=== PATIENT | male | born 2000 ===

== ENCOUNTER 2024-05-30 19:55 | Emergency (ER) | payer BC, SELFPAY ==
--- OUTSIDE RECORDS SUMMARY | 2024-05-30 19:58 | XMS_ITS | Clinical Summary ---
Author Organization [facility] Address [address] [place] [id number] Care Team Providers Care Electrical Automation Engineer Name Role Phone Jessica Saenz MD Primary Care Provi alberto Jessica Saenz MD Unavailable [phone] Allergies Active Allergy Reactions Criticality Noted Date Comments Amoxicillin-Pot Clavulanate Hives,Rash High 11/11/19 12 Medications multivitamin (CHEWABLE MULTI VITAMIN) chew Take 1 tablet by mouth once daily. 0 6 Active ascorbic acid (vitamin C) 100 mg tablet Take 100 mg by mouth. Active cyanocobalamin (vitamin B-12) (VITAMIN B-12 ORAL) Take by mouth. Active Amphetamine-Dextro amphetamine (ADDERALL) 15 mg tabletIndications: Attention deficit hyperactivity disorder (ADHD), unspecified ADHD type Take 1 tablet by mouth 2 times daily 60 Tablet 12/17/2022 11:45 AM CDT 3 05/28/19 25 Discontin ued(*Angelica ent states no longer taking) ondansetron (ZOFRAN ODT) 4 mg disintegrating tabletIndications: Nausea and vomiting, unspecified vomiting type Place 2 Tablets (8 mg) on the tongue every 8 hours if needed for Nausea/Vomi ting. 12 Tablet 3 05/28/19 25 Discontin ued(*Angelica ent states no longer taking) Active Problems Problem Noted Date Diagnosed Date Right hip impingement syndrome 05/27/2024 Acute right-sided low back pain with right-sided sciatica 05/27/2024 Unspecified sinusitis (chronic) 01/12/2012 Nocturnal enuresis 12/09/2010 Encounters Date Type Department Care Team Description 05/27/2024 5:10 PM CDT Ancillary Procedure [facility] [address] [facility] [address] [place] [address] Arrived 05/27/2024 4:40 PM CDT Office Visit [facility] [address] [facility] [address] [place] [address] Ayla Nam PA Hip Pain/problem (R) 05/27/2024 Travel from Last 3 Months Immunizations Immunization Administration Dates Next Due AMB Influenza, IIV4 PF (=>6 mos Flulaval,Fluzone Fluarix)(Flu Clinic Only) 12/07/2018 COVID-19 vaccine (Moderna 100mcg/0.5mL) PF, MDV 09/05/2020,08/06/2020 DTaP 10/21/2006, 3,03/21/2002,01/13,2001 HIB PRP-OMP (PedvaxHIB) 09/12/2002 HIB PRP-T (ActHIB,Hiberix) 01/06/2003 HIB-HepB (Comvax) 06/16/2002,01/13/2002,11/04/19 02 HPV 9 (Gardasil 9) 01/20/2020,10/13/2016 Hepatitis A (Adult) 10/13/2016 Hepatitis A (Peds) 01/20/2020 Inactivated Polio Vaccine 10/13/2016,,01/13/2002,11/03 Influenza, IIV3 (Age >=3 years) 02/12/20 12,12/09/2010,12/06/2007,01/13 Influenza, IIV4 01/20/2020,03/10/2016 MENINGOCOCCAL VACCINE 2 VIAL 2MO-55YO (MENVEO) 10/29/2018,04/28/2013 MMR 10/21/2006,09/12/2002 Pneumococcal conj 7-Valent (Prevnar 7) 1 03/08/2002,03/21/2002,01/13/2002,11/03 Tdap 04/28/2013 Varicella Vaccine 12/09/2010,09/12/2002 Family History Medical History Relation Name Comments Diabetes Brother type one Hyperlipidemia Father Hypertension Father Other Mother celiac disease Other Sister celiac disease dx age 8 Anesthesia Problem No Family History Blood Disease No Family History Relation Name Status Comments Brother Father Mother Sister Social History Tobacco Use Types Packs/Day Years Used Date Smoking Tobacco: Never Passive Smoke Exposure: Never Smokeless Tobacco: Never Tobacco Cessation:Counseling Given: Not Answered Comments:non smoking hoome Alcohol Use Standard Drinks/Week Comments Yes 2 (1 standard drink = 0.6 oz pur e alcohol) occ PHQ-2 Answer Date Recorded PHQ-2 TOTAL SCORE 0 07/30/2022 Social Connections Answer Date Recorded Do you often feel lonely or isolated from those around you? 0 05/27/2024 Financial Resource Strain Answer Date R ecorded Difficulty of Paying Living Expenses 3 05/27/2024 Difficulty of Paying Living Expenses Not on file 05/27/2024 Food Insecurity Answer Date Recorded Do you worry your food will run out before you are able to buy more? 1 05/27/2024 Transportation Needs Answer Date Record ed Does lack of transportation keep you from medica l appointments? 1 05/27/2024 Does lack of transportation keep you from work, meetings or getting things that you need? 1 05/27/2024 Housing Stability Answer Date Recorded What is your housing situation today? 1 05/27/2024 Utilities Answer Date Recorded Do you have trouble paying f or utilities (for example, heat, electricity, water, phone)? 1 05/27/2024 Sex and Gender Information Value Date Recorded Sex Assigned at Not on file Legal Sex Male 6:27 AM DEBONING TEAM LEADER Gender Identity Not on file Sexual Orientation Not on file Obstetrics History Last Filed Vital Signs Vital Sign Reading Time Taken Comments Blood Pressure 112/61 05/27/2024 4:51 PM CDT MAP - 81 Pulse 70 05/27/2024 4:51 PM CDT Temperature 37.2 C (99 F) 05/27/2024 4:51 PM CDT Respiratory Rate 14 05/27/2024 4:51 PM CDT Oxygen Saturation 96% 05/27/2024 4:51 PM CDT Inhaled Oxygen Concentration - - Weight 81.9 kg (180 lb 9.6 oz) 05/27/2024 4:51 P M CDT Height 182.9 cm (6') 02/02/2023 12:13 PM DEBONING TEAM LEADER Body Mass Index 24.49 02/02/2023 12:13 PM DEBONING TEAM LEADER Plan of Treatment Upcoming Encounters Date Type Department Care Team (Late st Contact Info) Description 06/06/2024 10:15 AM CDT Office Visit [facility] [address] [facility] [address] [place] [address] Buffy Moe MD [address] [place] [id number] Health Maintenance Due Date Last Done Comments HIV for age 15-65 2016 Hepatitis C screening for age 18-79 09/08/2019 HPV series for age 9-26 (3 - Male 3-dose series) 04/13/2020 01/20/2020, 10/13/2016 Tetanus booster 04/28/2023 04/28/2013 BMI (ht and wt on same day) for age 18+ 07/31/2023 07/30/2022, 11/27/2020, 01/20/2020 Depression screening for age 12+ 07/31/2023 07/30/2022, 11/27/2020, 02/21/2019, Additional history exists COVID-19 vaccine series ( season) 2023 09/05/2020, 08/06/2020 Influenza Vaccine (#1) 2023 0, 12/07/2018, 03/10/2016, Additional history exists Pneumococcal series for age 6-49 Aged Out 01/06/2003, 03/21/2002, 01/13/2002, Additional history exists No longer eligible based on patient's age to complete this topic Tdap Completed 04/28/2013 Procedures Procedure Name Priority Date/Time Associated Diagnosis Comments XR HIP 1 VIEW W PELVIS RIGHT STAT 05/27/2024 5:24 PM CDT Right hip impingement syndrome from Last 3 Months Results * XR HIP 1 VIEW W PELVIS RIGHT (05/27/2024 5:24 PM CDT) Anatomical Region Laterality Modality HIPS, HIPR, Pelvis Digital Radio graphy 05/27/2024 5:39 PM CDT Impressions 05/27/2024 5:39 PM CDT 1. No acute osseous injuries or abnormalities are noted. Dictated by: Peter Driver MD @ 05/27/2024 17:39:50 (Electronically Signed) Narrative 05/27/2024 5:39 PM CDT For Patients: As a result of the Cures Act, medical imaging exams and procedure reports are released immediately into your electronic medical record. You may view this report before your referring provider. If you have questions, please contact your health care provider. INDICATION: Right hip impingement syndrome TECHNIQUE: Pelvis radiograph, Hip radiograph 2 views right COMPARISON: None FINDINGS: Bone: No acute fractures or aggressive bone lesions are identified. Both iliac crests are partially excluded. Joint: The hip joints are unremarkable. The visualized sacroiliac joints are unremarkable in appearance. The pubic symphysis is normal in appearance. Soft tissue: Unremarkable. No radiopaque foreign bodies are seen. Procedure Note Peter Driver MD - 05/27/2024 For Patients: As a result of the Cures Act, medical imagingexams and procedure reports are released immediately into your electronicmedical record. You may view this report before your referring provider.If you have questions, please contact your health care provider. INDICATION: Right hip impingement syndrome TECHNIQUE: Pelvis radiograph, Hip radiograph 2 views right COMPARISON: None FINDINGS: Bone: No acute fractures or aggressive bone lesions are identified. Bothiliac crests are partially excluded. Joint: The hip joints are unremarkable. The visualized sacroiliac jointsare unremarkable in appearance. The pubic symphysis is normal inappearance. Soft tissue: Unremarkable. No radiopaque foreign bodies are seen. IMPRESSION: 1. No acute osseous injuries or abnormalities are noted. Dictated by: Peter Driver MD @ 05/27/2024 17:39:50 (Electronically Signed) us [facility] Final Resu lt from Last 3 Months Insurance [employer] Care Teams Electrical Automation Engineer Relationship Specialty Start Date End Date Jessica Saenz MD [address] [place] [address] PCP - General Pediatric 12/09/10 Jessica Saenz MD [address] [place] [address] Pediatric 12/09/10
[2024-05-30 20:00] VITALS: BP 117/77; PULSE 84; RESP 16; TEMP 37.3; O2SAT 95; BMI 24.4
--- NOTE | 2024-05-30 20:07 | ED.GENADULT ---
HPI - General Adult General Time Seen by Provider: 20:07 Date Seen: 05/30/24 Chief complaint: Groin Pain Stated complaint: Likely hernia Time Seen by Provider: 05/30/24 19:59 Source: patient, family and RN notes reviewed Mode of arrival: ambulatory Limitations: no limitations History of Present Illness HPI narrative: Reagan is a very pleasant 23-year-old male previously healthy who comes to the emergency room with his mother for evaluation of right groin pain and lump. Reagan states he noticed this yesterday and that it hurts when he stands up. When he is lying down or sitting it does not bother him. Does not feel like it is bulging if he coughs or has a bowel movement as he did earlier today. He denies dysuria hematuria any fever or chills. Has been sexually active in the past and does not think he has had any sexually transmitted infections. Reagan denies any recent trauma, testicular pain. Related Data Previous Rx's ?Medication ?Instructions ?Recorded valacyclovir 1 gram tablet 1,000 mg PO TID #30 tabs 05/30/24 (Valtrex) Allergies Allergy/AdvReac Type Severity Reaction Status Date / Time amoxicillin (From Augmentin) Allergy Intermediate Hives Verified 05/30/24 20:05 clavulanic acid (From Allergy Intermediate Hives Verified 05/30/24 20:05 Augmentin) Review of Systems Status of ROS: Reports: 6 or more systems reviewed and unremarkable except as noted in History and below Const: Denies: fever or chills ENMT: Denies: nasal congestion Cardio: Denies: chest pain Resp: Denies: cough GI: Denies: abdominal pain, nausea, vomiting or constipation : Denies: painful urination or urinary frequency Musculo: Reports: extremity pain (Recent been evaluated for right hip pain.); Denies: back pain Exam Narrative: Exam Narrative: Alert and oriented. No acute distress. No respiratory distress. Abdomen is soft nontender. No distention. Palpation in the right groin just lateral to the from oral structures shows a oblong firm structure nonmobile that is slightly tender to the touch. It is measuring approximately 2 cm in length and approximately 0.5 cm in diameter. No bulging with coughing. Palpation of the testicle does not yield any discomfort. Const: Vital Signs, click to edit/add: Vital Signs - 24 hr 05/30/24 20:00 Temperature 99.2 F Pulse Rate [Pulse Oximeter] 84 Respiratory Rate 16 Blood Pressure [Ri ght Upper Arm] 117/77 Pulse Oximetry 95 Oxygen Delivery Me thod Room Air Documenting provider has reviewed patient's vital signs: yes Course Course ED Course: Differential diagnosis includes but is not limited to lymph node enlargement, mass, hernia, STI. Have ordered urinalysis and chlamydia/gonorrhea. Will also order ultrasound. Reevaluation(s) Reevaluation #1: Preliminary ultrasound read suggest an enlarged lymph node. Vital Signs Vital signs: Initial Vital Signs Temperature 99.2 F 05/30/24 20:00 Temperature Source Temporal Artery Scan 05/30/24 20:00 Pulse Rate 84 05/30/24 20:00 Respiratory Rate 16 05/30/24 20:00 Blood Pressure 117/77 05/30/24 20:00 Blood Pressure Mean 90 05/30/24 20:00 Blood Pressure Position Sitting 05/30/24 20:00 Pulse Oximetry 95 05/30/24 20:00 Oxygen Delivery Method Room Air 05/30/24 20:00 Vital Signs Temperature 99.2 F 05/30/24 20:00 Pulse Rate 84 05/30/24 20:00 Respiratory Rate 16 05/30/24 20:00 Blood Pressure 117/77 05/30/24 20:00 Pulse Oximetry 95 05/30/24 20:00 Oxygen Delivery Method Room Air 05/30/24 20:00 Temperature 99.2 F 05/30/24 20:00 Pulse Rate 84 05/30/24 20:00 Respiratory Rate 16 05/30/24 20:00 Blood Pressure 117/77 05/30/24 20:00 Pulse Oximetry 95 05/30/24 20:00 Oxygen Delivery Method Room Air 05/30/24 20:00 Medical Decision Making MDM Narrative Medical decision making narrative: 1. Shingles-official radiological read of the ultrasound suggested a lymph node verses lipoma. When I spoke to family about this mom mentions that Reagan had been experiencing a rash. ED 1 cover him he has multiple blister-like lesions on his right low back as well as an a linear fashion down his right medial thigh to the knee. This is a shingles rash. This likely explains patient's hip pain as well as the enlarged lymph node. Will give him his 1st dose of Valtrex here in tonight and he will continue Valtrex 1000 mg t.i.d. times 10 days. The remainder of the prescription was sent to his pharmacy. Stressed the importance of his ability to give chickenpox to those who are not vaccinated, immune compromise or have had chickenpox. Have given him a note to be off work the next 7 days. Have instructed him that he is contagious until all the lesions crust over and there are no more lesions occurring. Ibuprofen or Tylenol to be used for discomfort. 2. Lymphadenopathy-likely from the shingles. Recommend follow-up in a month if the lymph node remains enlarged. 3. Disposition-home at this time. Return for worsening symptoms and as needed. Medical Records Medical records reviewed: Yes I reviewed the patient's medical records Lab Data Lab results reviewed: Yes I reviewed the patient's lab results Labs: Lab Results 05/30/24 Range/Units 20:21 Urine Color Yellow (Yellow) Urine Appearance Clear (Clear) Urine pH 6.0 (5.0-8.5) Ur Specific [place] <= 1.005 (1.000-1.030) Urine Protein Negative (Negative) Urine Glucose (UA) Negative (Negative) Urine Ketones Negative (Negative) Urine Blood Trace-intact A (Negative) Urine Nitrite Negative (Negative) Urine Bilirubin Negative (Negative) Urine Urobilinogen 0.2 (0.2-1.0) Ur Leukocyte Esterase Negative (Negative) Urine RBC 0-2 (0-2) Urine WBC 0-2 (0-5) Ur Squamous Epith Cells None (None-Few) Urine Bacteria None (None) Imaging Data US - abdomen: Attestation: I have reviewed the pertinent imaging results. Radiologist's impression: Focused sonographic evaluation of the right inguinal region at the region of palpable concern demonstrates: 16 x 7 x 14 millimeter well defined oval hypoechoic structure without appreciable hyperemia within the subcutaneous fat. IMPRESSION: There is a 16 x 7 x 14 millimeter oval hypoechoic structure without appreciable hyperemia within the subcutaneous fat at the palpable region of clinical concern at the right inguinal region. The lesion is sonographically indeterminate, but does not demonstrate any specifically worrisome sonographic features. Some initial differential considerations include a normal lymph node, a lipoma, and other nonspecific mass lesions. Discharge Plan Discharge Clinical Impression: Shingles, Enlarged lymph node Patient Disposition: Home, Self-Care Condition: Unchanged Additional Instructions: Continue Valtrex in antiviral medication tomorrow morning. We will give your 1st dose here in the emergency room. Ibuprofen or Tylenol may be used for discomfort. I suspect that your lymph node enlargement will decrease and be back to normal in a few weeks. If it is not normal after a few weeks please follow-up with our surgical team. They can be reached at [phone] for appointment. Return for worsening symptoms and as needed. You are contagious to individuals who have not had chickenpox, on chemotherapy or our immunocompromised. Wash her hands frequently and wear a mask if you are traveling or in a large group. You are contagious until all of the lesions break open and are scabbed and there are no more new lesions forming. Prescriptions: New valacyclovir [Valtrex] 1 gram tablet 1,000 mg PO TID Qty: 30 0RF Follow Up/Referrals: Jessica Saenz MD [Primary Care Provider] - Stand Alone Forms: [facility] Info Instructions
--- NOTE | 2024-05-30 20:18 | CRLHL7_ITS ---
For Patients: As a result of the Century Cures Act, medical imaging exams and procedure reports are released immediately into your electronic medical record. You may view this report before your referring provider. If you have questions, please contact your health care provider. INDICATION: Right lower quadrant mass COMPARISON: None. TECHNIQUE: Focused sonographic evaluation of the reported region of clinical concern was performed at the right inguinal region utilizing gilman-scale and color Doppler imaging techniques. FINDINGS: Focused sonographic evaluation of the right inguinal region at the region of palpable concern demonstrates: 16 x 7 x 14 millimeter well defined oval hypoechoic structure without appreciable hyperemia within the subcutaneous fat. IMPRESSION: There is a 16 x 7 x 14 millimeter oval hypoechoic structure without appreciable hyperemia within the subcutaneous fat at the palpable region of clinical concern at the right inguinal region. The lesion is sonographically indeterminate, but does not demonstrate any specifically worrisome sonographic features. Some initial differential considerations include a normal lymph node, a lipoma, and other nonspecific mass lesions. Dictated by Uzair Wright MD @ 05/30/2024 9:17:15 PM (Electronically Signed)
[2024-05-30 20:30] LABS: Appearance Urine Clear (Clear); Bilirubin Urine Negative (Negative); Blood Urine Trace-intact (Negative); Color Urine Yellow (Yellow); Glucose Urine Negative (Negative); Ketones Urine Negative (Negative); Leukocyte Esterase Urine Negative (Negative); Nitrite Urine Negative (Negative); Protein Urine Negative (Negative); Specific Gravity Urine <= 1.005 (1.000-1.030); Urobilinogen Urine 0.2 (0.2-1.0)
[2024-05-30 20:38] LABS: RBC Urine 0-2 (0-2); WBC Urine 0-2 (0-5)
--- OUTSIDE RECORDS SUMMARY | 2024-05-30 20:44 | XMS_ITS | Clinical Summary ---
Author Organization [facility] Address [address] [place] [id number] Care Team Providers Care Bridge Builder Name Role Phone Jessica Saenz MD Primary Care Provi alberto Jessica Saenz MD Unavailable [phone] Allergies Active Allergy Reactions Criticality Noted Date [...] Description 05/27/2024 5:10 PM CDT Ancillary Procedure [facility] [address] [facility] [address] [place] [address] Arrived 05/27/2024 4:40 PM CDT Office Visit [facility] [address] [facility] [address] [place] [address] Ayla Nam PA Hip Pain/problem (R) 05/27/2024 [...] on file Legal Sex Male 6:27 AM VESSEL CAPTAIN Gender Identity Not on file Sexual Orientation [...] Height 182.9 cm (6') 02/02/2023 12:13 PM VESSEL CAPTAIN Body Mass Index 24.49 02/02/2023 12:13 PM VESSEL CAPTAIN Plan of Treatment Upcoming Encounters Date Type Department Care Team (Late st Contact Info) Description 06/06/2024 10:15 AM CDT Office Visit [facility] [address] [facility] [address] [place] [address] Buffy Moe MD [address] [phone] Health Maintenance Due Date Last Done Comments [...] Resu lt from Last 3 Months [place] [employer] [address] Care Teams Bridge Builder Relationship Specialty Start Date End Date Jessica Saenz MD [address] [place] [address] PCP - General Pediatric 12/09/10 Jessica Saenz MD [address] [place] [address] Pediatric 12/09/10
[2024-05-30] MEDS: VALACYCLOVIR HCL 500 MG TABLET 1000 MG PO (21:50)
[2024-05-30 22:01] LABS: Chlamydia DNA Amplified* NOT DETECTED (No Detected); GC DNA Amplified* NOT DETECTED (No Detected)
== END 2024-05-30 21:51 | disposition home or self-care (01) ==
PROVIDERS: Emergency Provider Family Medicine; PCP Pediatrics
DX: R59.0 Localized enlarged lymph nodes (principal); B02.9 Zoster without complications
CPT/HCPCS: 76705; 81001; 87491; 87591; 99284; A9270